=== PATIENT | female | born 1980 | race Caucasian/White ===

== ENCOUNTER 2019-04-13 12:22 | Outpatient (CLI) | payer OTHER | END 2019-04-13 23:59 | disposition home or self-care (01) | LOC: STAR 12:22 | PROVIDERS: ATTEND Orthopaedic Surgery | DX: Z01.818 Encounter for other preprocedural examination (principal); M16.11 Unilateral primary osteoarthritis, right hip; Z79.899 Other long term (current) drug therapy | CPT/HCPCS: 36415; 80053; 83036; 85025; 85610; 85730; 86701; 86702; 87081; 87389; 93005 ==

== ENCOUNTER 2019-04-18 05:25 | Inpatient (IN) | payer OTHER ==
[~2019-04-18] VITALS: Ht 167.6 cm; Wt 97.5 kg
== END 2019-04-19 14:31 | disposition home or self-care (01) | DRG 470 ==
LOC: ORIP 05:25 → 4NOR 11:04 → DCLOUNGE 04-19 14:15
PROVIDERS: ADMIT Orthopaedic Surgery; ATTEND Orthopaedic Surgery
PROC: 0SR902Z Replacement of Right Hip Joint with Metal on Polyethylene Synthetic Substitute, Open Approach (ICD-10-PCS; principal; 2019-04-18)
DX: M87.851 Other osteonecrosis, right femur (principal); K21.9 Gastro-esophageal reflux disease without esophagitis; Z96.641 Presence of right artificial hip joint; M21.70 Unequal limb length (acquired), unspecified site; Z88.1 Allergy status to other antibiotic agents; Z88.8 Allergy status to other drugs, medicaments and biological substances
CPT/HCPCS: 36415; 72170; 81025; 85014; 85018; 86850; 86900; C1713; G0378; J0171; J0690; J1100; J1170; J1885; J2250; J2550; J2704; J2710; J2795; J3010; J3480; C1776; J1200; J7120